=== PATIENT | female | born 1955 | race Caucasian/White ===

== ENCOUNTER → 2017-10-31 | Outpatient (REF) | payer BC | LOC: M LAB REF 13:21 | DX: J02.9 Acute pharyngitis, unspecified (principal) | CPT/HCPCS: 87081 ==

== ENCOUNTER → 2019-05-28 | Outpatient (REF) | payer BC ==
[2019-05-31 15:40] LABS: HPV HYBRID CAPTURE II Negative (Negative)
== END ==
LOC: M LAB LCGH 11:40
PROVIDERS: ATTEND Nurse Practitioner Adult Health
DX: Z12.4 Encounter for screening for malignant neoplasm of cervix (principal)
CPT/HCPCS: 87624; G0123

== ENCOUNTER 2021-04-22 13:26 | Inpatient (IN) | payer BC, OTHER ==
[~2021-04-22] VITALS: Ht 170.2 cm; Wt 77.4 kg
[2021-04-22] MEDS ORDERED: CLIN-30 (13:48)
[2021-04-22] MEDS ORDERED: CLOB0.0548 TOP (13:48)
[2021-04-22] MEDS ORDERED: CEPH500C (13:48)
[2021-04-22] MEDS ORDERED: MUPI2OI TOP (13:48)
[2021-04-22] MEDS ORDERED: LEXA1TAB (13:48)
[2021-04-22] MEDS ORDERED: LIOT25TA8 PO (13:48)
[2021-04-22] MEDS ORDERED: VANCOMYCIN HCL 1,500 MG in NS 250 ML IV ONE (14:35)
[2021-04-22] MEDS ORDERED: VANCOMYCIN HCL 750 MG, VIAL MATE ADAPTER 1 EACH in NS 250 ML IV ONE ×8 (14:45→18:00)
[2021-04-22 15:01] LABS: BASO # 0.1 10^3/uL (0.0-0.2); BASO % 0.7 % (0.0-1.0); EOS # 0.3 10^3/uL (0.0-0.5); EOS % 3.8 % (0.0-3.0); HEMATOCRIT 44.7 % (36.0-47.0); HEMOGLOBIN 14.4 g/dl (12.0-15.5); LYMPH # 1.7 10^3/uL (1.5-5.0); LYMPH % 23.3 % (24.0-44.0); MEAN CORPUSCULAR HEMOGLOBIN 28.8 pg (27.0-33.0); MEAN CORPUSCULAR HGB CONC 32.2 g/dl (32.0-36.5); MEAN CORPUSCULAR VOLUME 89.4 fl (80.0-96.0); MONO # 0.5 10^3/uL (0.0-0.8); NEUTROPHILS # 4.6 10^3/uL (1.5-8.5); NEUTROPHILS % 64.6 % (36.0-66.0); PLATELET COUNT, AUTOMATED 270 10^3/uL (150-450); WHITE BLOOD COUNT 7.2 10^3/uL (4.0-10.0)
[2021-04-22 15:21] LABS: BLOOD UREA NITROGEN 13 MG/DL (7-18); CALCIUM LEVEL 9.5 MG/DL (8.8-10.2); CARBON DIOXIDE LEVEL 28 MEQ/L (21-32); CHLORIDE LEVEL 107 MEQ/L (98-107); CREATININE FOR GFR 0.82 MG/DL (0.55-1.30); GLOMERULAR FILTRATION RATE > 60.0 (>45); GLUCOSE, FASTING 87 MG/DL (70-100); POTASSIUM SERUM 4.3 MEQ/L (3.5-5.1); SODIUM LEVEL 142 MEQ/L (136-145)
--- NOTE | 2021-04-22 16:25 | HPEPDOC ---
General Date of Admission 04/22/21 Date of Service: Apr 22, 2021 Chief Complaint The patient is a 65-year-old female admitted with a reason for visit of Skin Issue. Source: Patient History of Present Illness Patient 65 years old female with past medical history of breast cancer treated with radiation chemotherapy and lumpectomy around 10 years ago, history of thyroid cancer in young age, status post thyroidectomy, hypothyroidism presented to hospital with redness of left eyelid. Patient stated that on Monday she noticed mild erythema on her left eyelid which became progressively worse and increased in size in the next few days. She visited primary care physician who prescribed her Keflex on Monday and it did not help. Her erythema became more intense and increased in size. She visited traffic supervisor on Monday who prescribed clindamycin. Today patient started feeling that erythema started spreading on tissue around her left eye and down her face. In ER patient was found to have no leukocytosis, BMP unremarkable. Home Medications Miscellaneous Medications Cephalexin (Cephalexin) 500 Mg Capsule, (Reported) Clindamycin HCl (Clindamycin HCl) 150 Mg Capsule, (Reported) Clobetasol Propionate/Emoll (Clobetasol Emollient 0.05% Crm) 0.05% 15GM Cre am..g., (Reported) Escitalopram Oxalate (Lexapro) 10 Mg Tablet, (Reported) Liothyronine Sodium (Liothyronine Sodium) 25 Mcg Tablet, (Reported) Mupirocin (Mupirocin) 2 % Oint...g., (Reported) Allergies Coded Allergies: meperidine (Verified Allergy, Intermediate, faint, 04/22/21) neomycin (Verified Allergy, Intermediate, itching, 04/22/21) pentazocine (Verified Allergy, Intermediate, faint, 04/22/21) Past Medical History Medical History breast cancer treated with radiation chemotherapy and lumpectomy around 10 years ago, history of thyroid cancer in young age, status post thyroidectomy, hypothyroidism Surgical History Breast lumpectomy, thyroidectomy Family History I personally reviewed family history and found not pertinent Social History * Smoker: Denies Alcohol: occationally Drugs: denies A-FIB/CHADSVASC A-FIB History Current/History of A-Fib/PAF?: No Current PO Anticoag Therapy: No Review of Systems Constitutional: Denies: Chills, Fever Eyes: Denies: Pain ENT: Reports: Other Symptoms (Erythema around left eye); Denies: Head Aches Skin: Denies: Itching Pulmonary: Denies: Dyspnea, Cough Cardiovascular: Denies: Chest Pain Gastrointestinal: Denies: Nausea Genitourinary: Denies: Dysuria Hematologic: Denies: Bruising Endocrine: Denies: Polydipsia Musculoskeletal: Denies: Neck Pain Neurological: Denies: Weakness Psych: Reports: Mood Normal Physical Examination General Exam: Positive: Alert Eye Exam: Positive: PERRLA ENT Exam: Positive: Atraumatic Neck Exam: Positive: Supple; Negative: JVD Chest Exam: Positive: Clear to auscultation Heart Exam: Positive: Rate Normal Telemetry: Positive: No significant arrhythmia Abdomen Exam: Positive: Normal bowel sounds Extremity Exam: Negative: Clubbing Skin Exam: Positive: Nl turgor and temperature Neuro Exam: Positive: Normal Gait Psych Exam: Positive: Mental status NL, Oriented x 3 Vital Signs Vital Signs Date Time Temp Pulse Resp B/P (MAP) Pulse Ox O2 Delivery O2 Flow Rate FiO2 04/22/21 13:26 98.9 85 18 140/84 (102) 97 Room Air Laboratory Data Labs 24H Laboratory Tests 2 04/22/21 14:50: Immature Granulocyte % (Auto) 0.6, Neutrophils (%) (Auto) 64.6, Lymphocytes (%) (Auto) 23.3L, Monocytes (%) (Auto) 7.0, Eosinophils (%) (Auto) 3.8H, Basophils (%) (Auto) 0.7, Neutrophils # (Auto) 4.6, Lymphocytes # (Auto) 1.7, Monocytes # (Auto) 0.5, Eosinophils # (Auto) 0.3, Basophils # (Auto) 0.1, Nucleated Red Blood Cells % (auto) 0.0, Anion Gap 7L, Glomerular Filtration Rate > 60.0, Calcium Level 9.5 CBC/BMP Laboratory Tests 04/22/21 14:50 Microbiology Microbiology 04/22/21 Blood Culture, Received Pending 04/22/21 Blood Culture, Received Pending Assessment/Plan Patient 65 years old female with past medical history of breast cancer treated with radiation chemotherapy and lumpectomy around 10 years ago, history of thyroid cancer in young age, status post thyroidectomy, hypothyroidism presented to hospital with redness of left eyelid. Patient stated that on Monday she no ticed mild erythema on her left eyelid which became progressively worse and increased in size in the next few days. She visited primary care physician who prescribed her Keflex on Monday and it did not help. Her erythema became more intense and increased in size. She visited traffic supervisor on Monday who prescribed clindamycin. Today patient started feeling that erythema started spreading on tissue around her left eye and down her face. In ER patient was found to have no leukocytosis, BMP unremarkable. Problems (1) Cellulitis Status: Acute Problem Text: Left eyelids cellulitis Failed treatment with Keflex and clindamycin p.o. Vancomycin IV Await blood culture We will proceed with CT to rule out abscess Plan / VTE VTE Prophylaxis Ordered?: Yes SHANEKA HERNANDEZ DO Apr 22, 2021 16:25
--- NOTE | 2021-04-22 16:53 | REPVR ---
PROCEDURE INFORMATION: Exam: CT Maxillofacial Without Contrast Exam date and time: 04/22/2021 4:30 PM Age: 65 years old Clinical indication: Mass, lump, or swelling; Other: Left eye to jaw; Additional info: With left eye area TECHNIQUE: Imaging protocol: Computed tomography images of the face without contrast. Radiation optimization: All CT scans at this facility use at least one of these dose optimization techniques: automated exposure control; mA and/or kV adjustment per patient size (includes targeted exams where dose is matched to clinical indication); or iterative reconstruction. COMPARISON: No relevant prior studies available. FINDINGS: Orbital cavity: Orbits are normal. Globes are unremarkable. Bones/joints: No acute fracture. Paranasal sinuses: Small retention cyst in the left maxillary sinus. Mild mucosal thickening of the ethmoid air cells. Soft tissues: Prominent subcutaneous fat stranding along the left periorbital soft tissues, left face, and left jaw. No drainable abscess or fluid collection. 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 IMPRESSION: 1. Findings concerning for superficial cellulitis of the left face, jaw, and periorbital region. 2. 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 Recommend correlation with neck ultrasound. COMMENTS: Consistent with the [employer]'s Incidental Findings Committee white paper (J Am Presley Radiol 2015): In patients aged 35 years and older with an incidental thyroid nodule equal to or greater than 1.[address], MRI or extrathyroidal US, further evaluation with dedicated thyroid US is recommended for patients with normal life expectancy and without comorbidities. For smaller nodules without suspicious features, no further evaluation or follow up is recommended. Electronically signed by: Jan Gross On 04/22/2021 16:52:57 PM
[2021-04-22] MEDS ORDERED: LEXA1TAB2 PO (16:55)
[2021-04-22] MEDS ORDERED: HOME MED LIST COMPLETE! XX SCH (16:55)
[2021-04-22 17:39] LABS: RSV AMPLIFICATION NEGATIVE (NEGATIVE)
[2021-04-22] MEDS: ACETAMINOPHEN TAB 650MG DOSE (2X325MG) PO PRN (23:33)
[2021-04-23 04:00] VITALS: BP 105/76
[2021-04-23] MEDS ORDERED: VANCOMYCIN HCL 1,000 MG, VIAL MATE ADAPTER 1 EACH in NS 250 ML IV SCH ×2 (04:00→14:00)
[2021-04-23 06:00] VITALS: BP 106/75
[2021-04-23 06:20] LABS: HEMATOCRIT 39.3 % (36.0-47.0); HEMOGLOBIN 12.8 g/dl (12.0-15.5); MEAN CORPUSCULAR HEMOGLOBIN 29.1 pg (27.0-33.0); MEAN CORPUSCULAR HGB CONC 32.6 g/dl (32.0-36.5); MEAN CORPUSCULAR VOLUME 89.3 fl (80.0-96.0); PLATELET COUNT, AUTOMATED 247 10^3/uL (150-450); WHITE BLOOD COUNT 6.5 10^3/uL (4.0-10.0)
[2021-04-23 06:46] LABS: ALBUMIN 3.1 GM/DL (3.2-5.2); ALT/SGPT 22 U/L (12-78); BILIRUBIN,TOTAL 0.5 MG/DL (0.2-1.0); BLOOD UREA NITROGEN 16 MG/DL (7-18); CALCIUM LEVEL 9.1 MG/DL (8.8-10.2); CARBON DIOXIDE LEVEL 28 MEQ/L (21-32); CHLORIDE LEVEL 113 MEQ/L (98-107); CREATININE FOR GFR 0.65 MG/DL (0.55-1.30); GLOMERULAR FILTRATION RATE > 60.0 (>45); GLUCOSE, FASTING 86 MG/DL (70-100); MAGNESIUM LEVEL 2.4 MG/DL (1.8-2.4); POTASSIUM SERUM 4.4 MEQ/L (3.5-5.1); SODIUM LEVEL 143 MEQ/L (136-145); TOTAL PROTEIN 6.5 GM/DL (6.4-8.2)
[2021-04-23] MEDS: ENOXAPARIN 40MG/0.4ML SYRINGE (J1650 PER 10MG) SC SCH (09:06)
[2021-04-23] MEDS: ACETAMINOPHEN TAB 650MG DOSE (2X325MG) PO PRN ×2 (09:10→14:56)
[2021-04-23 14:00] VITALS: BP 126/82
[2021-04-23] MEDS ORDERED: CLOBETASOL PROPIONATE EMOLLIENT 0.05% CR 60 GM TOP PRN (14:50)
--- NOTE | 2021-04-23 16:03 | IPNPDOC ---
Text Note Date of Service The patient was seen on 04/23/21. NOTE Subjective: 65-year-old female who presented to the hospital yesterday with s welling and redness of her left eye. Patient states that she initially went to her primary care doctor and was prescribed Keflex on Monday which did not help. Patient saw ophthalmology the following day and was prescribed clindamycin. She is post have a follow-up with ophthalmology yesterday however, the patient was unable to go due to an emergency in the ophthalmology office so the patient was told to come to the hospital. Patient was admitted. Patient is feeling better. Patient does not complain of any pain with moving her eye. Patient is otherwise feeling well. Review of systems: General: Patient denies fevers HEENT: Patient denies headaches Cardiovascular: Patient denies chest pain Respiratory: Patient denies shortness of breath, cough GI: Patient denies abdominal pain, nausea, vomiting, diarrhea : Patient denies increased frequency or pain with urination Extremities: Patient denies swelling or pain in extremities Neurological: Patient denies numbness or tingling in legs Physical exam: Vitals: See below General: Alert and oriented female patient who was sitting up in bed when I walked in. Patient not appear to be in any acute distress. HEENT: Normocephalic, atraumatic, moist mucous membranes. Redness and mild swelling around the left eye. Patient was able to open the eye and move her eye at all directions without any pain or tenderness. Patient not have any fluctuance or draining areas Neck: No lymphadenopathy or thyromegaly Cardiac: Regular rate and rhythm, no murmurs, normal S1, normal S2 Pulm: Clear to auscultation bilaterally. No wheezes, rhonchi, rales Abd: Nondistended, nontender to palpation, normal bowel sounds Ext: No edema bilateral lower extremities Labs: See below Imaging: No new imaging has been performed Assessment/plan: 65-year-old female who presented with periorbital cellulitis who was admitted due to outpatient failure. 1. Periorbital cellulitis. Patient failed treatment with Keflex and clindamycin p.o. Patient is on vancomycin and appears to be improving. CT ruled out abscess. We will continue to monitor. Patient be switched to p.o. doxycycline tomorrow. 2. Depression. Continue home medications. 3. Hypothyroidism. Continue home medications. DVT Prophylaxis: Lovenox Disposition: Pending improvement, will switch to p.o. VS,Fishbone, I+O VS, Fishbone, I+O Laboratory Tests 04/23/21 05:38 Vital Signs Date Time Temp Pulse Resp B/P (MAP) Pulse Ox O2 Delivery O2 Flow Rate FiO2 04/23/21 06:00 98.1 68 17 106/75 (85) 97 Room Air I&O- Last 24 Hours up to 6 AM 04/23/21 06:00 Intake Total 520 ml Balance 520 ml CHAKA TIJERINA DO Apr 23, 2021 16:03
[2021-04-23] MEDS: ESCITALOPRAM OXALATE 10 MG TAB (LEXAPRO) PO SCH (16:37)
[2021-04-23] MEDS: LIOTHYRONINE 25 MCG TAB PO SCH (16:38)
[2021-04-23] MEDS: DOXYCYCLINE HYCLATE 100MG TABLET PO SCH (20:09)
[2021-04-23 22:00] VITALS: BP 116/72
[2021-04-24] MEDS: LIOTHYRONINE 25 MCG TAB PO SCH (05:05)
[2021-04-24 06:00] VITALS: BP 111/66
[2021-04-24] MEDS: ENOXAPARIN 40MG/0.4ML SYRINGE (J1650 PER 10MG) SC SCH (08:32)
[2021-04-24] MEDS: DOXYCYCLINE HYCLATE 100MG TABLET PO SCH (08:32)
[2021-04-24] MEDS: ESCITALOPRAM OXALATE 10 MG TAB (LEXAPRO) PO SCH (08:32)
[2021-04-24] MEDS ORDERED: ONDANSETRON 4MG/2ML VIAL IV PRN (08:35)
[2021-04-24 09:08] LABS: BASO # 0.1 10^3/uL (0.0-0.2); BASO % 0.9 % (0.0-1.0); EOS # 0.2 10^3/uL (0.0-0.5); HEMATOCRIT 41.3 % (36.0-47.0); HEMOGLOBIN 13.5 g/dl (12.0-15.5); LYMPH # 1.6 10^3/uL (1.5-5.0); LYMPH % 29.1 % (24.0-44.0); MEAN CORPUSCULAR HGB CONC 32.7 g/dl (32.0-36.5); MEAN CORPUSCULAR VOLUME 88.8 fl (80.0-96.0); MONO # 0.5 10^3/uL (0.0-0.8); MONO % 8.5 % (2.0-8.0); NEUTROPHILS # 3.2 10^3/uL (1.5-8.5); NEUTROPHILS % 57.1 % (36.0-66.0); PLATELET COUNT, AUTOMATED 246 10^3/uL (150-450); RED BLOOD COUNT 4.65 10^6/uL (4.00-5.40); WHITE BLOOD COUNT 5.5 10^3/uL (4.0-10.0)
[2021-04-24 09:18] LABS: BLOOD UREA NITROGEN 14 MG/DL (7-18); CALCIUM LEVEL 9.6 MG/DL (8.8-10.2); CARBON DIOXIDE LEVEL 27 MEQ/L (21-32); CHLORIDE LEVEL 109 MEQ/L (98-107); CREATININE FOR GFR 0.73 MG/DL (0.55-1.30); GLOMERULAR FILTRATION RATE > 60.0 (>45); GLUCOSE, FASTING 92 MG/DL (70-100); MAGNESIUM LEVEL 2.2 MG/DL (1.8-2.4); POTASSIUM SERUM 4.2 MEQ/L (3.5-5.1); SODIUM LEVEL 142 MEQ/L (136-145)
[2021-04-24] MEDS ORDERED: BACT800T5 PO (12:32)
--- NOTE | 2021-04-24 15:09 | DS.PDOC ---
Discharge Summary General Date of Admission Apr 22, 2021 at 16:12 Date of Discharge 04/24/2021 Primary Care Physician: Caleb Mcdaniel MD [facility] Attending Physician: CHAKA TIJERINA DO Discharge Summary PROCEDURES PERFORMED DURING STAY: None. ADMITTING DIAGNOSES: 1. Periorbital cellulitis. DISCHARGE DIAGNOSES: 1. Periorbital cellulitis, improved. 2. Depression 3. Hypothyroidism COMPLICATIONS/CHIEF COMPLAINT: Cellulitis. HISTORY OF PRESENT ILLNESS: Patient is a 65-year-old female with past medical history of breast cancer treated with radiation, chemotherapy, and lumpectomy around 10 years ago, history of thyroid cancer young age, status post thyroidectomy, hypothyroidism presented to the hospital with swelling and redness of the left eyelid. Patient stated that last Monday, 4 days prior to admission the patient noticed some mild redness in her left eyelid became progressively worse increased in size over the next few days. Patient initially visited her primary care physician who prescribed Keflex on Monday and did not help. Erythema became more intense increase in size. Patient visited refrigerator assembler on Monday who prescribed clindamycin. Patient was going to see her refrigerator assembler on but there was an emergency in the office and is unable to so the patient presented to the emergency department. Patient stated the erythema started spreading around the tissue on her left eye and on her face. Patient was found to have no leukocytosis and unremarkable BMP and was admitted for further work-up. HOSPITAL COURSE: Patient was started on vancomycin and improved. After her dose of vancomycin on 04/23/2021, patient was switched over to doxycycline. Patient received a dose of doxycycline in the evening on 04/23/2021 and on the morning of 04/24/2021. Patient was getting better however, on the morning of 04/24/2021 she began develop nausea. Patient did not want to eat any breakfast. Patient was able to receive a dose of Zofran which did help. Patient initially when seen in the morning was not ready for discharge as she is not able to eat however, I did go back and reevaluate the patient and after discussion with the patient, patient was feeling better and was able to be discharged at this time. Patient's nausea had improved. Because doxycycline has a side effect of nausea, I did switch the patient to Bactrim outpatient and instructed the patient to follow-up with her refrigerator assembler on Monday. Patient was deemed ready for discharge and was discharged home on 04/24/2021 DISCHARGE MEDICATIONS: Please see below. ALLERGIES: Please see below. PHYSICAL EXAMINATION ON DISCHARGE: VITAL SIGNS: Please see below. General: Alert and oriented female patient who was sitting in bed who initially appeared tired appearing however, on reevaluation, patient was up sitting in the couch by the window and appeared much better. Patient not appear to be in any acute distress. HEENT: Normocephalic, atraumatic, moist mucous membranes, erythema and swelling of the left eyelid has improved with desquamation of the overlying skin Neck: No lymphadenopathy or thyromegaly Cardiac: Regular rate and rhythm, no murmurs, normal S1, normal S2 Pulm: Clear to auscultation bilaterally. No wheezes, rhonchi, rales Abd: Nondistended, nontender to palpation, normal bowel sounds Ext: No edema bilateral lower extremities LABORATORY DATA: Please see below. IMAGING: CT maxillofacial performed without contrast on 04/22/2021 is reported to show findings concerning for superficial cellulitis of the left face, jaw, and periorbital region. Partially visualized 1.6 cm isodense midline cystic lesion along the anterior superior aspect of the thyroid cartilage suspicious for thyroglossal duct cyst. Recommend correlation with neck ultrasound. PROGNOSIS: Good ACTIVITY: As tolerated. DIET: Regular DISCHARGE PLAN: Discharge home DISPOSITION: 01 Home, Self-Care. DISCHARGE INSTRUCTIONS: 1. Follow-up with your primary care provider in 3 to 5 days discharge. 2. Follow-up with ophthalmology on Monday 3. Continue taking Bactrim DS twice daily for 5 days 4. Return to the emergency department if your symptoms worsen ITEMS TO FOLLOWUP ON ON OUTPATIENT: 1. Need for possible ultrasound due to possible thyroglossal duct cyst. DISCHARGE CONDITION: Stable. TIME SPENT ON DISCHARGE: 35 minutes. Vital Signs/I&Os Vital Signs Date Time Temp Pulse Resp B/P (MAP) Pulse Ox O2 Delivery O2 Flow Rate FiO2 04/24/21 06:00 98.5 78 16 111/66 (81) 94 Room Air I&O- Last 24 Hours up to 6 AM 04/24/21 06:00 Intake Total 1910 ml Output Total 700 ml Balance 1210 ml Laboratory Data Labs 24H Laboratory Tests 2 04/24/21 08:43: Immature Granulocyte % (Auto) 0.4, Neutrophils (%) (Auto) 57.1, Lymphocytes (%) (Auto) 29.1, Monocytes (%) (Auto) 8.5H, Eosinophils (%) (Auto) 4.0H, Basophils (%) (Auto) 0.9, Neutrophils # (Auto) 3.2, Lymphocytes # (Auto) 1.6, Monocytes # (Auto) 0.5, Eosinophils # (Auto) 0.2, Basophils # (Auto) 0.1, Nucleated Red Blood Cells % (auto) 0.0, Anion Gap 6L, Glomerular Filtration Rate > 60.0, Calcium Level 9.6, Magnesium Level 2.2 CBC/BMP Laboratory Tests 04/24/21 08:43 Microbiology Microbiology 04/22/21 Blood Culture - Preliminary, Resulted No Growth after 48 hours. All Specime... 04/22/21 Blood Culture - Preliminary, Resulted No Growth after 48 hours. All Specime... Discharge Medications Scheduled Escitalopram Oxalate (Lexapro) 20 Mg Tablet, 10 MG PO DAILY, (Reported) Liothyronine Sodium (Liothyronine Sodium) 25 Mcg Tablet, 25 MCG PO DAILY, (Reported) Sulfamethoxazole/Trimethoprim (Bactrim Ds Tablet) 1 Each Tablet, 1 TAB PO BID Scheduled PRN Clobetasol Propionate/Emoll (Clobetasol Emollient 0.05% Crm) 0.05% 15GM Cream..g., 1 APPLIC TOP BID PRN for ECZEMA, (Reported) Mupirocin (Mupirocin) 2 % Oint...g., 1 APPLIC TOP BID PRN for CELLULITIS, (Reported) Allergies Coded Allergies: meperidine (Verified Allergy, Intermediate, faint, 04/22/21) neomycin (Verified Allergy, Intermediate, itching, 04/22/21) pentazocine (Verified Allergy, Intermediate, faint, 04/22/21) CHAKA TIJERINA DO Apr 24, 2021 15:09
[2021-04-24] MEDS ORDERED: ZOFR4TAB16 PO (15:10)
== END 2021-04-24 13:09 | disposition home or self-care (01) | DRG 603 ==
LOC: M ED 13:26 → M ED INP 16:12 → ENRESERV 04-23 02:58 → M MSPAV 04-23 03:52
PROVIDERS: ADMIT Internal Medicine; ATTEND Family Medicine
DX: L03.211 Cellulitis of face (principal); Z85.3 Personal history of malignant neoplasm of breast; Z92.3 Personal history of irradiation; Z92.21 Personal history of antineoplastic chemotherapy; Z85.850 Personal history of malignant neoplasm of thyroid; Z79.899 Other long term (current) drug therapy; Z20.822 Contact with and (suspected) exposure to COVID-19; F32.9 Major depressive disorder, single episode, unspecified; E03.9 Hypothyroidism, unspecified

== ENCOUNTER → 2024-03-25 | Outpatient (REF) ==
[~2024-03-25] MED LIST: BACT800T5 PO; CEPH500C; CLIN-30; CLOB0.0548 TOP; LEXA1TAB; LEXA1TAB2 PO; LIOT25TA8 PO; MUPI2OI TOP; ZOFR4TAB16 PO
== END ==
LOC: M PLAIMG 10:35
PROVIDERS: ATTEND Internal Medicine
DX: M47.816 Spondylosis without myelopathy or radiculopathy, lumbar region (principal)